=== PATIENT | male | born 2000 | race Caucasian/White ===

== ENCOUNTER 2021-10-11 10:18 | Emergency (ER) | payer MEDICAID ==
[~2021-10-11] VITALS: Ht 180.3 cm; Wt 70.3 kg
[2021-10-11] MEDS ORDERED: methylPREDNISolone SOD SUCC 125 MG/2 ML VL IV ONE (11:30)
[2021-10-11] MEDS ORDERED: FAMOTIDINE (10MG/ML) 2ML VL IV ONE (11:30)
[2021-10-11] MEDS ORDERED: diphenhdrAMINE HCL 50 MG/1 ML VL IV ONE (11:30)
[2021-10-11] MEDS ORDERED: CEFTRIAXONE SODIUM 2 GM in D5W 5% 50 ML IV ONE (11:45)
[2021-10-11 12:04] LABS: Urine Bacteria FEW /hpf (None Seen); Urine Blood Negative /uL (Negative); Urine Mucus FEW (None Seen); Urine Specific Gravity 1.014 (1.001-1.035); Urine WBC 1 /hpf (0 - 3)
[2021-10-11 13:00] VITALS: BP 132/76
[2021-10-11] MEDS ORDERED: CLIN300C8 PO (13:38)
== END 2021-10-11 13:57 | disposition home or self-care (01) ==
LOC: ER 10:18
DX: L03.211 Cellulitis of face (principal)
CPT/HCPCS: 70486; 81001; 96365; 96375; 99284; J0696; J2930; J7060

== ENCOUNTER 2022-07-05 00:37 | Emergency (ER) | payer MEDICAID ==
[~2022-07-05] VITALS: Ht 180.3 cm; Wt 70.5 kg
[~2022-07-05 00:37] MED LIST: CLIN300C8 PO
[2022-07-05 01:00] VITALS: BP 124/49
== END 2022-07-05 02:02 | disposition home or self-care (01) ==
LOC: ER 00:37
DX: S83.015A Lateral dislocation of left patella, initial encounter (principal); W18.31XA Fall on same level due to stepping on an object, initial encounter; Y93.89 Activity, other specified; Y92.89 Other specified places as the place of occurrence of the external cause; Y99.8 Other external cause status
CPT/HCPCS: 27560; 73560